=== PATIENT | male | born 1970 | race Caucasian/White ===

== ENCOUNTER 2017-01-10 22:15 | Emergency (ER) | payer OTHER ==
[~2017-01-10] VITALS: Ht 167.6 cm; Wt 77.1 kg
[~2017-01-10 22:15] MED LIST: ASPI-COR81 M1 PO; CILOXAN0.3% OP; LANTUS100 U/ML SC; METFORMIN500 MG PO; MOTRIN800 MG PO; QUINAPRIL10 MG PO
[2017-01-10] MEDS ORDERED: NAPROSYN500 MG PO (22:23)
== END 2017-01-10 23:35 | disposition home or self-care (01) ==
LOC: ED 22:15
DX: S60.221A Contusion of right hand, initial encounter (principal); R03.0 Elevated blood-pressure reading, without diagnosis of hypertension; F17.200 Nicotine dependence, unspecified, uncomplicated; Z98.890 Other specified postprocedural states; Z79.899 Other long term (current) drug therapy; Z91.013 Allergy to seafood; Z91.041 Radiographic dye allergy status; W22.8XXA Striking against or struck by other objects, initial encounter; Y93.89 Activity, other specified; Y92.89 Other specified places as the place of occurrence of the external cause; Y99.9 Unspecified external cause status

== ENCOUNTER → 2017-09-20 | Outpatient (CLI) | payer OTHER ==
[~2017-09-20] MED LIST changes: +NAPROSYN500 MG PO
== END | disposition home or self-care (01) ==
LOC: MRI 09:46
DX: D35.02 Benign neoplasm of left adrenal gland (principal); K46.9 Unspecified abdominal hernia without obstruction or gangrene; K76.0 Fatty (change of) liver, not elsewhere classified; N28.1 Cyst of kidney, acquired; Z90.411 Acquired partial absence of pancreas; Z90.49 Acquired absence of other specified parts of digestive tract

== ENCOUNTER 2024-08-02 15:22 | Emergency (ER) | payer BC ==
[~2024-08-02] VITALS: Ht 167.6 cm; Wt 69.4 kg
[2024-08-02] MEDS ORDERED: PRAVASTATIN SOD40 MG PO (15:50)
[2024-08-02] MEDS ORDERED: LANTUS SOL100 UNIT/1 SC (15:51)
[2024-08-02] MEDS ORDERED: BENAZEPRIL20 MG PO (15:51)
[2024-08-02] MEDS ORDERED: CYCLOBENZAPRINE10 MG PO (16:33)
== END 2024-08-02 16:42 | disposition home or self-care (01) ==
LOC: ED 15:22
DX: S16.1XXA Strain of muscle, fascia and tendon at neck level, initial encounter (principal); Z91.041 Radiographic dye allergy status; Z91.013 Allergy to seafood; Z79.4 Long term (current) use of insulin; Z79.899 Other long term (current) drug therapy; Z98.890 Other specified postprocedural states; X50.3XXA Overexertion from repetitive movements, initial encounter; Y93.I9 Activity, other involving external motion; Y92.812 Truck as the place of occurrence of the external cause; Y99.8 Other external cause status

== ENCOUNTER → 2024-11-26 | Outpatient (CLI) | payer BC ==
[~2024-11-26] MED LIST changes: +BENAZEPRIL20 MG PO; +CYCLOBENZAPRINE10 MG PO; +LANTUS SOL100 UNIT/1 SC; +PRAVASTATIN SOD40 MG PO
== END | disposition home or self-care (01) ==
LOC: US 08:30
PROVIDERS: ATTEND Family Medicine
DX: N28.1 Cyst of kidney, acquired (principal); R35.0 Frequency of micturition; E27.8 Other specified disorders of adrenal gland

== ENCOUNTER → 2025-02-21 | Outpatient (CLI) | payer BC ==
[~2025-02-21] MED LIST changes: +Iodixanol 320 100 ML VIAL IV ONE; +Iodixanol 320 100 ML VIAL ONE
== END | disposition home or self-care (01) ==
LOC: CT 08:28
PROVIDERS: ATTEND Family Medicine
DX: N40.0 Benign prostatic hyperplasia without lower urinary tract symptoms (principal); K86.9 Disease of pancreas, unspecified; Z90.49 Acquired absence of other specified parts of digestive tract

== ENCOUNTER → 2025-07-04 | Outpatient (CLI) | payer BC ==
[~2025-07-04] MED LIST changes: -Iodixanol 320 100 ML VIAL IV ONE; -Iodixanol 320 100 ML VIAL ONE
== END | disposition home or self-care (01) ==
LOC: CARD 14:34
PROVIDERS: ATTEND Family Medicine
DX: R94.31 Abnormal electrocardiogram [ECG] [EKG] (principal); R42 Dizziness and giddiness

== ENCOUNTER → 2025-07-16 | Outpatient (CLI) | payer BC ==
[~2025-07-16] MED LIST changes: +ASPIRIN81 M3 PO; +CETIRIZINE10 MG PO; +FLOMAX0.4 MG PO; +FLONASE ALLERG9.9 ML NAS; +METFORMIN HYD1000 MG PO; +ROSUVASTATIN CA20 MG PO; +Regadenoson 0.4 MG/5 ML SYR IV ONE
== END | disposition home or self-care (01) ==
LOC: CARD 00:53
PROVIDERS: ATTEND Family Medicine
DX: R94.31 Abnormal electrocardiogram [ECG] [EKG] (principal)

== ENCOUNTER → 2025-07-30 | Outpatient (CLI) | payer BC ==
[~2025-07-30] MED LIST changes: -Regadenoson 0.4 MG/5 ML SYR IV ONE
== END | disposition home or self-care (01) ==
LOC: US 08:03
PROVIDERS: ATTEND Family Medicine
DX: Z12.2 Encounter for screening for malignant neoplasm of respiratory organs (principal); R42 Dizziness and giddiness; F17.210 Nicotine dependence, cigarettes, uncomplicated

== ENCOUNTER → 2025-09-02 | Outpatient (CLI) | payer BC | END | disposition home or self-care (01) | LOC: US 00:51 | PROVIDERS: ATTEND Family Medicine | DX: E04.2 Nontoxic multinodular goiter (principal) ==

== ENCOUNTER → 2025-09-29 | Outpatient (CLI) | payer BC | END | disposition home or self-care (01) | LOC: NM 08:00 | PROVIDERS: ATTEND Family Medicine | DX: E04.1 Nontoxic single thyroid nodule (principal) ==